=== PATIENT | male | born 1965 | race Two or more races ===

== ENCOUNTER 2022-04-28 23:21 | Inpatient (IN) | payer OTHER, MEDICAID ==
[~2022-04-28] VITALS: Ht 177.8 cm; Wt 71.9 kg
[2022-04-28 23:51] LABS: BASOPHILS % 0.2 % (0.0-2.0); HEMATOCRIT. 46.2 % (42.0-52.0); HEMOGLOBIN. 15.4 g/dL (14.0-18.0); LYMPHOCYTES % 15.3 % (20.0-50.0); MEAN CORPUSCULAR HEMOGLOBIN 29.1 pg (28.0-32.0); MEAN CORPUSCULAR VOLUME 87.1 fL (80.0-94.0); MONOCYTES % 6.2 % (2.0-8.0); NEUTROPHILS % 78.3 % (40.0-76.0); PLATELET 273 x1000/uL (130-400)
[2022-04-28 23:55] LABS: CHLORIDE 104 mEq/L (98-107)
[2022-04-29] VITALS (46 sets, daily range): BP systolic 97–149; BP diastolic 55–93
[2022-04-29] MEDS ORDERED: LABETALOL 5MG/ML SYR 20 MG/4 ML SYRINGE IV NR (01:45)
[2022-04-29] MEDS ORDERED: PHENYTOIN SODIUM 1,000 MG in SODIUM CHLORIDE 0.9% 100 ML IV ONE (02:00)
[2022-04-29] MEDS ORDERED: NICARDIPINE 100 MG in SODIUM CHLORIDE 0.9% 60 ML IV ONE (02:00)
[2022-04-29] MEDS ORDERED: MANNITOL 20% 250 ML IV ONE (02:00)
[2022-04-29] MEDS ORDERED: DEXAMETHASONE 10 MG/ML VIAL IV ONE (02:00)
[2022-04-29] MEDS ORDERED: NICARDIPINE 100 MG in SODIUM CHLORIDE 0.9% 60 ML IV NR ×4 (02:15)
[2022-04-29] MEDS ORDERED: PHENYTOIN SODIUM 1,000 MG in SODIUM CHLORIDE 0.9% 100 ML IV NR (02:15)
[2022-04-29] MEDS ORDERED: LABETALOL 5MG/ML SYR 20 MG/4 ML SYRINGE IV ONE (02:15)
[2022-04-29] MEDS ORDERED: MANNITOL 20% 250 ML IV NR (02:15)
[2022-04-29] MEDS ORDERED: LEVETIRACETAM 500MG PREMIX 100 ML IV ONE (02:15)
[2022-04-29 03:09] LABS: INR 1.1; PARTIAL THROMBOPLASTIN TIME 28.6 sec (23.4-31.0); PROTHROMBIN TIME 11.5 sec (9.6-11.0)
[2022-04-29 05:52] LABS: BASOPHILS % 0.3 % (0.0-2.0); HEMATOCRIT. 47.4 % (42.0-52.0); HEMOGLOBIN. 16.2 g/dL (14.0-18.0); LYMPHOCYTES % 10.3 % (20.0-50.0); MEAN CORPUSCULAR HEMOGLOBIN 29.8 pg (28.0-32.0); MEAN CORPUSCULAR VOLUME 87.2 fL (80.0-94.0); MEAN PLATELET VOLUME 9.1 fl (7.4-10.4); MONOCYTES % 4.8 % (2.0-8.0); NEUTROPHILS % 84.6 % (40.0-76.0); PLATELET 251 x1000/uL (130-400); RED BLOOD CELL COUNT 5.43 mill/uL (4.7-6.1); RED CELL DISTRIBUTION WIDTH 13.8 % (11.6-14.6)
[2022-04-29 06:08] LABS: CHLORIDE 105 mEq/L (98-107)
[2022-04-29] MEDS ORDERED: GENTAMICIN SULF 40MG/ML 2ML VIAL ONE (06:33)
[2022-04-29] MEDS ORDERED: THROMBIN (BOVINE) 5000 UNITS/VIAL TOP ONE (06:33)
[2022-04-29] MEDS ORDERED: LIDOCAINE HCL 2%/EPINEPHRINE 1:100,000 20 ML VIAL INFIL ONE (06:33)
[2022-04-29] MEDS ORDERED: ONDANSETRON HCL 4MG/2ML INJ ONE (07:16)
[2022-04-29] MEDS ORDERED: SUCCINYLCHOLINE CHLORIDE 200MG/10ML IV ONE (07:16)
[2022-04-29] MEDS ORDERED: ETOMIDATE 2MG/ML 10ML VIAL IV ONE (07:16)
[2022-04-29] MEDS ORDERED: DEXAMETHASONE 4MG/ML 1ML VIAL ONE (07:16)
[2022-04-29] MEDS ORDERED: ROCURONIUM BROMIDE 10MG/ML VIAL 5ML IV ONE (07:16)
[2022-04-29] MEDS ORDERED: MIDAZOLAM HCL 2 MG/2 ML VIAL ONE (07:17)
[2022-04-29] MEDS ORDERED: FENTANYL CITRATE/PF 50MCG/ML 2ML VIAL ONE (07:17)
[2022-04-29] MEDS ORDERED: LABETALOL HCL 5MG/ML VIAL 20ML IV ONE ×2 (07:34→07:49)
[2022-04-29] MEDS ORDERED: PROPOFOL 200MG/20ML VIAL IV ONE (07:40)
[2022-04-29] MEDS ORDERED: BACITRACIN 15GM TUBE TOP ONE (08:17)
[2022-04-29] MEDS ORDERED: CEFAZOLIN SODIUM 1000MG/VIAL ONE (08:20)
[2022-04-29] MEDS ORDERED: GLYCOPYRROLATE 0.2 MG/ML 2ML VIAL ONE ×2 (08:20→08:21)
[2022-04-29] MEDS ORDERED: NEOSTIGMINE METHYLSULFATE 1MG/ML 10 ML VIAL ONE (08:20)
[2022-04-29] MEDS ORDERED: NICARDIPINE 100 MG in SODIUM CHLORIDE 0.9% 60 ML IV PRN (08:45)
[2022-04-29] MEDS ORDERED: LEVETIRACETAM 500 MG in SODIUM CHLORIDE 0.9% 100 ML IV SCH (08:45)
[2022-04-29] MEDS ORDERED: NALOXONE HCL 0.4MG/ML VIAL IV PRN (09:00)
[2022-04-29] MEDS: DEXT 5%/LACTATED RINGERS 1,000 ML IV SCH (09:02)
[2022-04-29] MEDS: PANTOPRAZOLE SODIUM 40 MG/VIAL IV SCH (09:02)
[2022-04-29] MEDS: LEVETIRACETAM 500MG PREMIX 100 ML IV SCH ×2 (10:43→20:09)
[2022-04-29] MEDS: MORPHINE SULFATE 4 MG/ML CPJ (NOT FOR IM USE) IV PRN ×3 (11:46→22:58)
[2022-04-29] MEDS ORDERED: NEOMY SULF/BACITRAC ZN/POLY OINT 28GM TOP PRN (12:00)
[2022-04-29] MEDS: CEFAZOLIN 1000MG PREMIX 50 ML IV SCH ×2 (13:18→22:51)
[2022-04-29] MEDS ORDERED: CEFAZOLIN SODIUM 1000MG/VIAL IV SCH (14:00)
[2022-04-30] VITALS (68 sets, daily range): BP systolic 74–150; BP diastolic 47–96
[2022-04-30] MEDS: MORPHINE SULFATE 4 MG/ML CPJ (NOT FOR IM USE) IV PRN ×7 (01:49→20:43)
[2022-04-30] MEDS: DEXT 5%/LACTATED RINGERS 1,000 ML IV SCH ×2 (01:49→19:24)
[2022-04-30] MEDS: CEFAZOLIN 1000MG PREMIX 50 ML IV SCH ×2 (05:11→13:09)
[2022-04-30 06:09] LABS: BASOPHILS % 0.1 % (0.0-2.0); HEMATOCRIT. 43.2 % (42.0-52.0); LYMPHOCYTES % 8.5 % (20.0-50.0); MEAN CORPUSCULAR HEMOGLOBIN 28.9 pg (28.0-32.0); MEAN CORPUSCULAR VOLUME 89.2 fL (80.0-94.0); MEAN PLATELET VOLUME 8.7 fl (7.4-10.4); MONOCYTES % 8.9 % (2.0-8.0); NEUTROPHILS % 82.5 % (40.0-76.0); PLATELET 271 x1000/uL (130-400); RED BLOOD CELL COUNT 4.84 mill/uL (4.7-6.1); RED CELL DISTRIBUTION WIDTH 14.1 % (11.6-14.6)
[2022-04-30 07:00] LABS: CHLORIDE 110 mEq/L (98-107)
[2022-04-30] MEDS: LEVETIRACETAM 500MG PREMIX 100 ML IV SCH ×2 (08:30→20:41)
[2022-04-30] MEDS: HYDROCODONE/ACETAMINOPHEN 5/325MG TABLET PO PRN ×3 (08:30→23:11)
[2022-04-30] MEDS: PANTOPRAZOLE SODIUM 40 MG/VIAL IV SCH (08:30)
[2022-04-30] MEDS ORDERED: HYDRALAZINE 20MG/ML VIAL IV PRN (14:45)
[2022-04-30] MEDS: AMLODIPINE 5MG TABLET PO SCH (20:41)
[2022-04-30] MEDS: LOSARTAN POTASSIUM 50 MG TABLET PO SCH (20:41)
[2022-05-01] VITALS (55 sets, daily range): BP systolic 95–161; BP diastolic 48–99
[2022-05-01] MEDS: HYDROCODONE/ACETAMINOPHEN 5/325MG TABLET PO PRN ×5 (04:49→22:58)
[2022-05-01 05:58] LABS: BASOPHILS % 0.3 % (0.0-2.0); HEMATOCRIT. 42.5 % (42.0-52.0); LYMPHOCYTES % 24.9 % (20.0-50.0); MEAN CORPUSCULAR HEMOGLOBIN 29.1 pg (28.0-32.0); MEAN CORPUSCULAR VOLUME 88.3 fL (80.0-94.0); MEAN PLATELET VOLUME 8.6 fl (7.4-10.4); MONOCYTES % 10.9 % (2.0-8.0); NEUTROPHILS % 63.9 % (40.0-76.0); PLATELET 249 x1000/uL (130-400); RED BLOOD CELL COUNT 4.82 mill/uL (4.7-6.1); RED CELL DISTRIBUTION WIDTH 13.9 % (11.6-14.6)
[2022-05-01] MEDS: MORPHINE SULFATE 4 MG/ML CPJ (NOT FOR IM USE) IV PRN ×5 (06:11→21:15)
[2022-05-01 06:13] LABS: CHLORIDE 110 mEq/L (98-107)
[2022-05-01] MEDS: AMLODIPINE 5MG TABLET PO SCH ×2 (08:32→20:35)
[2022-05-01] MEDS: PANTOPRAZOLE SODIUM 40 MG/VIAL IV SCH (08:32)
[2022-05-01] MEDS: LEVETIRACETAM 500MG PREMIX 100 ML IV SCH ×2 (08:32→20:36)
[2022-05-01] MEDS: LOSARTAN POTASSIUM 50 MG TABLET PO SCH ×2 (08:32→20:39)
[2022-05-01] MEDS: DEXT 5%/LACTATED RINGERS 1,000 ML IV SCH (12:18)
[2022-05-02] VITALS (36 sets, daily range): BP systolic 42–147; BP diastolic 24–99
[2022-05-02] MEDS: HYDROCODONE/ACETAMINOPHEN 5/325MG TABLET PO PRN ×3 (03:09→17:58)
[2022-05-02] MEDS: MORPHINE SULFATE 4 MG/ML CPJ (NOT FOR IM USE) IV PRN ×4 (05:00→16:26)
[2022-05-02] MEDS: LOSARTAN POTASSIUM 50 MG TABLET PO SCH ×2 (08:00→20:14)
[2022-05-02] MEDS: LEVETIRACETAM 500MG PREMIX 100 ML IV SCH (08:01)
[2022-05-02] MEDS: AMLODIPINE 5MG TABLET PO SCH ×2 (08:01→20:14)
[2022-05-02] MEDS: PANTOPRAZOLE SODIUM 40 MG/VIAL IV SCH (08:01)
[2022-05-02] MEDS: LIDOCAINE 5% PATCH TOP SCH (10:27)
[2022-05-02] MEDS: PANTOPRAZOLE 40MG DR TABLET PO SCH (20:13)
[2022-05-02] MEDS: LEVETIRACETAM 500MG TABLET PO SCH (20:14)
[2022-05-02] MEDS: ACETAMINOPHEN 325MG TABLET PO PRN (20:14)
[2022-05-03] VITALS (32 sets, daily range): BP systolic 94–135; BP diastolic 53–100
[2022-05-03] MEDS: MORPHINE SULFATE 4 MG/ML CPJ (NOT FOR IM USE) IV PRN ×3 (01:25→08:00)
[2022-05-03] MEDS: HYDROCODONE/ACETAMINOPHEN 5/325MG TABLET PO PRN ×3 (05:19→17:34)
[2022-05-03] MEDS: PANTOPRAZOLE 40MG DR TABLET PO SCH ×2 (05:53→20:14)
[2022-05-03] MEDS: AMLODIPINE 5MG TABLET PO SCH ×2 (08:17→20:14)
[2022-05-03] MEDS: LEVETIRACETAM 500MG TABLET PO SCH ×2 (08:17→20:14)
[2022-05-03] MEDS: LOSARTAN POTASSIUM 50 MG TABLET PO SCH ×2 (08:17→20:14)
[2022-05-03] MEDS: LIDOCAINE 5% PATCH TOP SCH (08:18)
[2022-05-03] MEDS: ACETAMINOPHEN 325MG TABLET PO PRN (20:14)
[2022-05-03] MEDS: ZOLPIDEM TARTRATE 5MG TABLET PO PRN (21:36)
[2022-05-04] VITALS: BP 117/69
[2022-05-04] MEDS: HYDROCODONE/ACETAMINOPHEN 5/325MG TABLET PO PRN ×4 (03:32→20:04)
[2022-05-04 04:00] VITALS: BP 122/85
[2022-05-04] MEDS: PANTOPRAZOLE 40MG DR TABLET PO SCH ×2 (06:21→20:04)
[2022-05-04] MEDS: ACETAMINOPHEN 325MG TABLET PO PRN (06:24)
[2022-05-04 08:00] VITALS: BP 114/74
[2022-05-04] MEDS: LOSARTAN POTASSIUM 50 MG TABLET PO SCH ×2 (08:47→20:03)
[2022-05-04] MEDS: LEVETIRACETAM 500MG TABLET PO SCH (08:47)
[2022-05-04] MEDS: AMLODIPINE 5MG TABLET PO SCH ×2 (08:48→20:03)
[2022-05-04] MEDS: LIDOCAINE 5% PATCH TOP SCH (08:49)
[2022-05-04 12:00] VITALS: BP 114/71
[2022-05-04] MEDS ORDERED: IPRATROPIUM/ALBUTEROL 0.5-3(2.5)MG/3ML NEB HHN PRN (15:45)
[2022-05-04 16:00] VITALS: BP 114/68
[2022-05-04 20:00] VITALS: BP 126/83
[2022-05-05] VITALS: BP 125/79
[2022-05-05] MEDS: ZOLPIDEM TARTRATE 5MG TABLET PO PRN (00:15)
[2022-05-05] MEDS: HYDROCODONE/ACETAMINOPHEN 5/325MG TABLET PO PRN ×2 (00:15→04:52)
[2022-05-05 04:00] VITALS: BP 103/67
[2022-05-05] MEDS: PANTOPRAZOLE 40MG DR TABLET PO SCH (06:21)
[2022-05-05 08:00] VITALS: BP 126/74
[2022-05-05 12:00] VITALS: BP 123/77
[2022-05-05] MEDS ORDERED: FOLIC ACID 1MG TABLET PO SCH (12:30)
[2022-05-05] MEDS ORDERED: THIAMINE HCL 100MG TABLET PO SCH (12:30)
[2022-05-05] MEDS ORDERED: NALOXONE HCL 0.4MG/ML VIAL IV PRN (13:45)
[2022-05-05] MEDS ORDERED: HYDROCODONE/ACETAMINOPHEN 5/325MG TABLET PO PRN (13:45)
[2022-05-05 16:00] VITALS: BP 119/86
[2022-05-05 18:26] VITALS: BP 123/77
[2022-05-06] MEDS ORDERED: FAMOTIDINE 20MG TABLET PO SCH (09:00)
== END 2022-05-05 19:43 | disposition home health service (06) | DRG 25 ==
LOC: ER 23:36 → MICUSO 04-29 02:10 → ENRESERV 04-29 02:42 → MICUSO 04-29 03:30 → 6EST 05-03 18:00
PROVIDERS: ADMIT Internal Medicine; ATTEND Internal Medicine
PROC: 4A103BD Monitoring of Intracranial Pressure, Percutaneous Approach (ICD-10-PCS; principal; 2022-04-29)
PROC: 00C40ZZ Extirpation of Matter from Intracranial Subdural Space, Open Approach (ICD-10-PCS; 2022-04-29)
PROC: 00H032Z Insertion of Monitoring Device into Brain, Percutaneous Approach (ICD-10-PCS; 2022-04-29)
PROC: 00U207Z Supplement Dura Mater with Autologous Tissue Substitute, Open Approach (ICD-10-PCS; 2022-04-29)
DX: I62.01 Nontraumatic acute subdural hemorrhage (principal); G93.41 Metabolic encephalopathy; I62.03 Nontraumatic chronic subdural hemorrhage; I10 Essential (primary) hypertension; Z20.822 Contact with and (suspected) exposure to COVID-19; M25.512 Pain in left shoulder; H53.2 Diplopia; D72.829 Elevated white blood cell count, unspecified; R53.81 Other malaise; G89.29 Other chronic pain; F17.200 Nicotine dependence, unspecified, uncomplicated; Z82.49 Family history of ischemic heart disease and other diseases of the circulatory system; Z87.11 Personal history of peptic ulcer disease
CPT/HCPCS: 36415; 71045; 73030; 80048; 80053; 83605; 84484; 85025; 86850; 86900; 87426; 92523; 93005; 97116; 97162; 97166; 99291; A4565; C1713; C1758; C9113; J0330; J0690; J1100; J1165; J1580; J1953; J2250; J2270; J2405; J2704; J2710; J3010; J3490; J7050; J7120; J7121

== ENCOUNTER 2023-11-20 09:33 | Inpatient (IN) | payer MEDICAID, OTHER ==
[~2023-11-20] VITALS: Ht 167.6 cm; Wt 69.2 kg
[2023-11-20] VITALS (26 sets, daily range): BP systolic 99–137; BP diastolic 14–97; PULSE 69–85; RESP 22–31; TEMP 96.1–98.8
[2023-11-20] MEDS: PIPERACILLIN/TAZO 3.375G/50ML 50 ML IV ONE (09:45)
[2023-11-20] MEDS: VANCOMYCIN 1G PREMIX 200 ML IV ONE (09:45)
[2023-11-20 10:03] LABS: BG CARBOXYHEMOGLOBIN 0.3 % (0.5-1.5); BG DEOXYHEMOGLOBIN 6.4 % (0.0-5.0); BG HCO3 ACT 3.7 mmol/L (22.0-26.0); BG METHEMOGLOBIN 0.1 % (0.0-1.5); BG OXYGEN SATURATION 93.6 % (92.0-98.5); BG OXYHEMOGLOBIN 93.2 % (94.0-97.0); BG PCO2 12.5 mmHg (35.0-45.0); BG PH 7.089 (7.350-7.450); BG PO2 89.7 mmHg (75.0-100.0); BG SAMPLE SITE RIGHT BRACHIAL; BG TOTAL HEMOGLOBIN 11.9 g/dL (12.0-18.0); BG VENT MODE NASAL CANNULA
[2023-11-20 10:07] LABS: HEMATOCRIT. 39.3 % (42.0-52.0); HEMOGLOBIN. 11.6 g/dL (14.0-18.0); MEAN CORPUSCULAR HEMOGLOBIN 34.8 pg (28.0-32.0); MEAN CORPUSCULAR HGB CONC 29.5 g/dL (31.0-37.0); MEAN CORPUSCULAR VOLUME 117.9 fL (80.0-94.0); MEAN PLATELET VOLUME 8.2 fl (7.4-10.4); PLATELET 110 x1000/uL (130-400); RED BLOOD CELL COUNT 3.33 mill/uL (4.7-6.1); RED CELL DISTRIBUTION WIDTH 19.4 % (11.6-14.6); WHITE BLOOD COUNT 13.8 x1000/uL (4.5-11.0)
[2023-11-20 10:12] LABS: DIFFERENTIAL COMMENT 1
[2023-11-20] MEDS: SODIUM CHLORIDE 0.9% 1,000 ML IV ONE ×2 (10:17→11:17)
[2023-11-20 10:22] LABS: ALANINE AMINOTRANSFERASE 132 IU/L (10-49); ALBUMIN 3.1 g/dL (3.2-4.8); ASPARTATE AMINOTRANSFERASE 837 IU/L (<34); CALCIUM 8.2 mg/dL (8.7-10.4); CHLORIDE 103 mEq/L (98-107); CREATININE 2.9 mg/dL (0.6-1.3); GLUCOSE 72 mg/dL (70-105); POTASSIUM 4.5 mEq/L (3.5-5.1); PROTEIN TOTAL 6.4 g/dL (6.0-8.3); SODIUM 147 mEq/L (136-145); UREA NITROGEN BLOOD 17 mg/dL (9-23)
[2023-11-20 10:25] LABS: AMMONIA 319 uMol/L (<32)
[2023-11-20 10:26] LABS: INR 1.3
[2023-11-20 10:27] LABS: TROPONIN I HIGH SENSITIVITY 1459 ng/L (3.0-53)
[2023-11-20 10:29] LABS: CARBON DIOXIDE < 10 mEq/L (21-32)
[2023-11-20 10:44] LABS: ANISOCYTOSIS 1+; LACTIC ACID 26.3 mmol/L (0.4-2.0); NUCLEATED RED BLOOD CELLS 1 /100 WBC; PLATELET ESTIMATE SLIGHTLY DECREASED; TOXIC VACUOLATION 2+
[2023-11-20] MEDS: LACTULOSE 20G/30ML UDC PO ONE (10:45)
[2023-11-20] MEDS: SODIUM CHLORIDE 0.9% 1000ML BAG (SEPSIS BOLUS) IV ONE (11:00)
[2023-11-20] MEDS: SODIUM BICARBONATE 8.4% 1 MEQ/ML 50ML SYR IV ONE (11:22)
[2023-11-20] MEDS: SODIUM BICARBONATE 8.4% 1 MEQ/ML 50ML SYR IV NR (11:41)
[2023-11-20] MEDS: NOREPINEPHRINE 8MG/250ML PMX 250 ML IV PRN ×2 (11:44→21:56)
[2023-11-20] MEDS ORDERED: NOREPINEPHRINE 8MG/250ML PMX 250 ML IV ONE (11:45)
[2023-11-20 11:47] LABS: CREATINE KINASE 1168 IU/L (46-171)
[2023-11-20] MEDS: SODIUM BICARBONATE 150 MEQ in DEXTROSE 5% WATER 850 ML IV SCH (11:53)
[2023-11-20] MEDS: FENTANYL CITRATE/PF 50MCG/ML 2ML VIAL IV ONE (12:30)
[2023-11-20] MEDS: MIDAZOLAM HCL 100 MG in DEXT 5% WATER 80 ML IV ONE (12:30)
[2023-11-20] MEDS ORDERED: DIPHENHYDRAMINE 50MG/ML VIAL IV PRN (12:45)
[2023-11-20] MEDS: FENTANYL 2500MCG/250ML PMX 250 ML IV ONE (12:45)
[2023-11-20] MEDS ORDERED: IPRATROPIUM/ALBUTEROL 0.5-3(2.5)MG/3ML NEB HHN PRN (12:45)
[2023-11-20] MEDS: ETOMIDATE 2MG/ML 10ML VIAL IV ONE (12:57)
[2023-11-20] MEDS: SUCCINYLCHOLINE CHLORIDE 200MG/10ML IV ONE (12:57)
[2023-11-20 13:32] LABS: BG BASE EXCESS -18.9 mmol/L (-2.0-2.0); BG CARBOXYHEMOGLOBIN 0.3 % (0.5-1.5); BG DEOXYHEMOGLOBIN 5.3 % (0.0-5.0); BG HCO3 ACT 9.6 mmol/L (22.0-26.0); BG METHEMOGLOBIN 0.1 % (0.0-1.5); BG OXYGEN SATURATION 94.7 % (92.0-98.5); BG OXYHEMOGLOBIN 94.3 % (94.0-97.0); BG PCO2 31.4 mmHg (35.0-45.0); BG PH 7.101 (7.350-7.450); BG PO2 97.2 mmHg (75.0-100.0); BG SAMPLE SITE RIGHT BRACHIAL; BG TOTAL HEMOGLOBIN 12.5 g/dL (12.0-18.0); BG VENT MODE VENT - AC
[2023-11-20] MEDS ORDERED: DOXYCYCLINE 100MG/100ML 100 ML IV SCH (15:00)
[2023-11-20] MEDS ORDERED: AZITHROMYCIN 500MG/250ML 250 ML IV SCH (15:00)
[2023-11-20] MEDS ORDERED: PHENYLEPHRINE 50MG/250ML PMX 250 ML IV PRN (16:00)
[2023-11-20] MEDS ORDERED: VASOPRESSIN 20 UNIT in SODIUM CHLORIDE 0.9% 99 ML IV PRN (16:00)
[2023-11-20] MEDS ORDERED: ALBUMIN HUMAN 12.5GM/50ML (25%) IV NR (16:00)
[2023-11-20] MEDS ORDERED: SODIUM BICARBONATE 8.4% 1 MEQ/ML 50ML SYR IV NR (16:00)
[2023-11-20] MEDS ORDERED: PANTOPRAZOLE SODIUM 40 MG/VIAL IV SCH (16:00)
[2023-11-20 16:26] LABS: HEMATOCRIT 36.1 % (42.0-52.0); HEMOGLOBIN 10.7 g/dL (14.0-18.0)
[2023-11-20] MEDS: PHENYLEPHRINE 50MG/250ML PMX 250 ML IV PRN (16:39)
[2023-11-20] MEDS: VASOPRESSIN 20 UNIT in SODIUM CHLORIDE 0.9% 99 ML IV PRN (16:48)
[2023-11-20 16:55] LABS: IRON 117 ug/dL (65-175); TOTAL IRON BINDING CAPACITY 120 ug/dl (250-425)
[2023-11-20] MEDS ORDERED: OCTREOTIDE 1,000 MCG in SODIUM CHLORIDE 0.9% 98 ML IV ONE (17:00)
[2023-11-20] MEDS: OCTREOTIDE 1,000 MCG in SODIUM CHLORIDE 0.9% 98 ML IV ONE (17:05)
[2023-11-20 17:21] LABS: HEPATITIS A AB IGM NEGATIVE (Negative); HEPATITIS B CORE AB IGM NEGATIVE (Negative); HEPATITIS B SURFACE ANTIGEN NEGATIVE (Negative); HEPATITIS C AB NON REACTIVE (Neg) (Negative)
[2023-11-20 17:29] LABS: FERRITIN 6754 ng/mL (22-322); FOLIC ACID (FOLATE) SERUM > 20.00 ng/mL (>5.38); VITAMIN B12 SERUM 815 pg/mL (211-911)
[2023-11-20] MEDS ORDERED: CEFTRIAXONE 1GM/50ML 50 ML IV SCH (18:00)
[2023-11-20] MEDS: FENTANYL 2500MCG/250ML PMX 250 ML IV PRN (18:52)
[2023-11-20] MEDS: MIDAZOLAM 100MG/100ML PREMIX IV PRN (18:55)
[2023-11-20] MEDS: IPRATROPIUM/ALBUTEROL 0.5-3(2.5)MG/3ML NEB HHN SCH (20:42)
[2023-11-20] MEDS: LACTULOSE ENEMA 1,000ML BOTTLE PR SCH (21:00)
[2023-11-20] MEDS: PANTOPRAZOLE SODIUM 40 MG/VIAL IV SCH (21:42)
[2023-11-20] MEDS: METHYLPREDNISOLONE SOD SUCC 40MG/ML (ACT-O-VIAL) IV SCH (21:42)
[2023-11-20] MEDS ORDERED: LACTULOSE 20G/30ML UDC PO SCH (22:00)
[2023-11-20 22:39] LABS: HEMATOCRIT 38.2 % (42.0-52.0)
[2023-11-21] VITALS (105 sets, daily range): BP systolic 68–227; BP diastolic 46–131; PULSE 76–120; RESP 19–30; TEMP 95.2–98.6
[2023-11-21 00:23] LABS: CLARITY URINE CLOUDY (CLEAR); COLOR URINE YELLOW (YELLOW); GLUCOSE URINE NEGATIVE (NEGATIVE); KETONES URINE TRACE (NEGATIVE); LEUKOCYTE ESTERASE URINE NEGATIVE (NEGATIVE); NITRITE URINE NEGATIVE (NEGATIVE); OCCULT BLOOD URINE 3+ (NEGATIVE); PROTEIN URINE 1+ (NEGATIVE); SPECIFIC GRAVITY URINE 1.013 (1.005-1.030); UROBILINOGEN URINE 0.2 E.U./dL (0.2-1.0)
[2023-11-21 00:59] LABS: HEMATOCRIT 37.1 % (42.0-52.0); HEMOGLOBIN 11.9 g/dL (14.0-18.0)
[2023-11-21 01:31] LABS: RBC URINE 0-2 /hpf (0-2); SQUAMOUS EPITHELIAL CELL URINE NONE SEEN /lpf (RARE/1+); WBC URINE 0-2 /hpf (0-2)
[2023-11-21 01:32] LABS: AMORPHOUS SEDIMENT URINE 1+ /lpf; BACTERIA URINE NONE SEEN; FINE GRANULAR CASTS URINE 0-5 /lpf
[2023-11-21] MEDS: PIPERACILLIN/TAZO 3.375G/50ML 50 ML IV SCH (01:37)
[2023-11-21] MEDS: ONDANSETRON HCL 4MG/2ML INJ IV PRN (04:05)
[2023-11-21] MEDS: NOREPINEPHRINE 32 MG in DEXT 5% WATER 218 ML IV PRN (04:05)
[2023-11-21] MEDS: MIDAZOLAM 100MG/100ML PMX 100 ML IV PRN (05:05)
[2023-11-21] MEDS: DOXYCYCLINE 100MG/100ML 100 ML IV SCH (05:06)
[2023-11-21 06:11] LABS: HEMATOCRIT. 37.9 % (42.0-52.0); HEMOGLOBIN. 12.2 g/dL (14.0-18.0); MEAN CORPUSCULAR HGB CONC 32.1 g/dL (31.0-37.0); MEAN CORPUSCULAR VOLUME 108.9 fL (80.0-94.0); RED BLOOD CELL COUNT 3.48 mill/uL (4.7-6.1); RED CELL DISTRIBUTION WIDTH 18.8 % (11.6-14.6)
[2023-11-21 06:30] LABS: AMMONIA 109 uMol/L (<32)
[2023-11-21 06:39] LABS: ALANINE AMINOTRANSFERASE 834 IU/L (10-49); ALBUMIN 2.6 g/dL (3.2-4.8); BILIRUBIN TOTAL 2.6 mg/dL (0.1-1.0); CALCIUM 6.1 mg/dL (8.7-10.4); CARBON DIOXIDE 21 mEq/L (21-32); CHLORIDE 105 mEq/L (98-107); CREATININE 2.3 mg/dL (0.6-1.3); PROTEIN TOTAL 5.4 g/dL (6.0-8.3); SODIUM 150 mEq/L (136-145); UREA NITROGEN BLOOD 23 mg/dL (9-23)
[2023-11-21 06:42] LABS: ASPARTATE AMINOTRANSFERASE > 6000 IU/L (<34); GLUCOSE 317 mg/dL (70-105)
[2023-11-21 07:28] LABS: DIFFERENTIAL COMMENT 1
[2023-11-21] MEDS: DEXT 5%/0.45% NACL 1000ML 1,000 ML IV SCH (08:54)
[2023-11-21] MEDS: KCL 20MEQ/100ML PREMIX 100 ML IV SCH (08:54)
[2023-11-21 09:06] LABS: BG BASE EXCESS 0.2 mmol/L (-2.0-2.0); BG CARBOXYHEMOGLOBIN 0.4 % (0.5-1.5); BG FRACTION INSPIRED OXYGEN 100; BG HCO3 ACT 26.2 mmol/L (22.0-26.0); BG METHEMOGLOBIN 0.3 % (0.0-1.5); BG OXYGEN SATURATION 86.9 % (92.0-98.5); BG OXYHEMOGLOBIN 86.3 % (94.0-97.0); BG PCO2 47.9 mmHg (35.0-45.0); BG PH 7.356 (7.350-7.450); BG PO2 59.7 mmHg (75.0-100.0); BG SAMPLE SITE RIGHT RADIAL; BG TOTAL HEMOGLOBIN 12.5 g/dL (12.0-18.0); BG TOTAL RESPIRATORY RATE 33 b/min; BG VENT MODE VENT - AC
[2023-11-21 09:35] LABS: PLATELET 73 x1000/uL (130-400)
[2023-11-21 09:48] LABS: CREATINE KINASE 2112 IU/L (46-171)
[2023-11-21] MEDS: FENTANYL 2500MCG/250ML PMX 250 ML IV PRN (11:06)
[2023-11-21 13:15] LABS: NUCLEATED RED BLOOD CELLS 7 /100 WBC; PLATELET ESTIMATE SLIGHTLY DECREASED
[2023-11-21 17:20] LABS: HEMATOCRIT 39.5 % (42.0-52.0); HEMOGLOBIN 12.9 g/dL (14.0-18.0)
[2023-11-21 21:06] LABS: HEMATOCRIT 38.4 % (42.0-52.0); HEMOGLOBIN 12.2 g/dL (14.0-18.0)
[2023-11-22] VITALS (108 sets, daily range): BP systolic 67–121; BP diastolic 48–82; PULSE 99–130; RESP 11–30; TEMP 97.7–98.4
[2023-11-22 05:29] LABS: HEMATOCRIT. 35.2 % (42.0-52.0); HEMOGLOBIN. 11.5 g/dL (14.0-18.0); MEAN CORPUSCULAR HEMOGLOBIN 35.4 pg (28.0-32.0); MEAN CORPUSCULAR HGB CONC 32.7 g/dL (31.0-37.0); MEAN CORPUSCULAR VOLUME 108.1 fL (80.0-94.0); RED BLOOD CELL COUNT 3.26 mill/uL (4.7-6.1); RED CELL DISTRIBUTION WIDTH 18.1 % (11.6-14.6)
[2023-11-22 05:41] LABS: CARBON DIOXIDE 28 mEq/L (21-32); CHLORIDE 107 mEq/L (98-107); CREATININE 2.7 mg/dL (0.6-1.3); PHOSPHORUS 1.5 mg/dL (2.5-4.9); SODIUM 149 mEq/L (136-145); UREA NITROGEN BLOOD 34 mg/dL (9-23)
[2023-11-22 06:46] LABS: DIFFERENTIAL COMMENT 1
[2023-11-22 06:59] LABS: GLUCOSE 444 mg/dL (70-105)
[2023-11-22] MEDS ORDERED: CALCIUM GLUCONATE 1,000 MG in DEXT 5% WATER 90 ML IV ONE (07:30)
[2023-11-22 07:36] LABS: MEAN PLATELET VOLUME 8.6 fl (7.4-10.4); PLATELET 43 x1000/uL (130-400)
[2023-11-22] MEDS: BLOOD SUGAR DIAGNOSTIC STRIP TEST SCH (08:17)
[2023-11-22] MEDS: MAGNESIUM 2 G PREMIX 50 ML IV ONE (08:24)
[2023-11-22] MEDS: KCL 20MEQ/100ML PREMIX 100 ML IV SCH (08:25)
[2023-11-22] MEDS: INSULIN LISPRO 100 UNITS/ML SUBCUT SCH (08:25)
[2023-11-22 09:01] LABS: BG BASE EXCESS 4.8 mmol/L (-2.0-2.0); BG CARBOXYHEMOGLOBIN 0.1 % (0.5-1.5); BG DEOXYHEMOGLOBIN 8.1 % (0.0-5.0); BG FRACTION INSPIRED OXYGEN 100; BG HCO3 ACT 29.1 mmol/L (22.0-26.0); BG METHEMOGLOBIN 0.3 % (0.0-1.5); BG OXYGEN SATURATION 91.9 % (92.0-98.5); BG OXYHEMOGLOBIN 91.5 % (94.0-97.0); BG PCO2 41.7 mmHg (35.0-45.0); BG PH 7.461 (7.350-7.450); BG PO2 64.7 mmHg (75.0-100.0); BG SAMPLE SITE RIGHT RADIAL; BG TOTAL HEMOGLOBIN 12.4 g/dL (12.0-18.0); BG VENT MODE VENT - AC
[2023-11-22] MEDS: CALCIUM GLUCONATE 1GM PREMIX 50ML IV SCH (09:23)
[2023-11-22] MEDS: INSULIN GLARGINE 100 UNITS/ML SUBCUT SCH (09:24)
[2023-11-22 10:01] LABS: ANISOCYTOSIS 2+; NUCLEATED RED BLOOD CELLS 4 /100 WBC; PLATELET ESTIMATE MARKEDLY DECREASED
[2023-11-22] MEDS: POTASSIUM PHOSPHATE 20 MMOL in DEXT 5% WATER 243.3333 ML IV SCH (10:31)
[2023-11-22] MEDS: LACTULOSE 20G/30ML UDC PO SCH (21:21)
[2023-11-23] VITALS (97 sets, daily range): BP systolic 78–133; BP diastolic 59–95; PULSE 91–147; RESP 15–32; TEMP 97.7–98
[2023-11-23 05:38] LABS: AMMONIA 30 uMol/L (<32)
[2023-11-23 06:03] LABS: HEMATOCRIT. 35.5 % (42.0-52.0); HEMOGLOBIN. 11.7 g/dL (14.0-18.0); MEAN CORPUSCULAR HEMOGLOBIN 35.1 pg (28.0-32.0); MEAN CORPUSCULAR HGB CONC 32.9 g/dL (31.0-37.0); MEAN CORPUSCULAR VOLUME 106.7 fL (80.0-94.0); MEAN PLATELET VOLUME 9.4 fl (7.4-10.4); RED BLOOD CELL COUNT 3.32 mill/uL (4.7-6.1); RED CELL DISTRIBUTION WIDTH 18.5 % (11.6-14.6)
[2023-11-23 06:16] LABS: CALCIUM 6.9 mg/dL (8.7-10.4); CARBON DIOXIDE 28 mEq/L (21-32); CHLORIDE 109 mEq/L (98-107); CREATININE 2.8 mg/dL (0.6-1.3); PHOSPHORUS 3.3 mg/dL (2.5-4.9); POTASSIUM 3.4 mEq/L (3.5-5.1); SODIUM 149 mEq/L (136-145); UREA NITROGEN BLOOD 38 mg/dL (9-23)
[2023-11-23 06:21] LABS: GLUCOSE 148 mg/dL (70-105)
[2023-11-23 07:47] LABS: DIFFERENTIAL COMMENT 1; PLATELET 33 x1000/uL (130-400)
[2023-11-23 08:57] LABS: BG BASE EXCESS 2.3 mmol/L (-2.0-2.0); BG CARBOXYHEMOGLOBIN 0.2 % (0.5-1.5); BG DEOXYHEMOGLOBIN 7.2 % (0.0-5.0); BG FRACTION INSPIRED OXYGEN 70; BG HCO3 ACT 25.9 mmol/L (22.0-26.0); BG METHEMOGLOBIN 0.2 % (0.0-1.5); BG OXYGEN SATURATION 92.8 % (92.0-98.5); BG OXYHEMOGLOBIN 92.4 % (94.0-97.0); BG PCO2 36.8 mmHg (35.0-45.0); BG PH 7.466 (7.350-7.450); BG PO2 66.7 mmHg (75.0-100.0); BG SAMPLE SITE RIGHT RADIAL; BG VENT MODE VENT - AC
[2023-11-23] MEDS: KCL 20MEQ/100ML PREMIX 100 ML IV SCH (09:33)
[2023-11-23] MEDS: DEXTROSE 5% WATER 1,000 ML IV SCH (09:35)
[2023-11-23 11:54] LABS: ANISOCYTOSIS 1+; NUCLEATED RED BLOOD CELLS 8 /100 WBC; PLATELET ESTIMATE MARKEDLY DECREASED
[2023-11-23] MEDS ORDERED: PROPOFOL 10MG/ML 100ML 100 ML IV PRN (14:00)
[2023-11-23] MEDS: CEFEPIME 1GM/50ML 50 ML IV SCH (16:20)
[2023-11-24] VITALS (106 sets, daily range): BP systolic 82–143; BP diastolic 52–85; PULSE 84–114; RESP 16–33; TEMP 97.8–98
[2023-11-24 05:43] LABS: HEMATOCRIT. 35.5 % (42.0-52.0); HEMOGLOBIN. 11.8 g/dL (14.0-18.0); MEAN CORPUSCULAR HEMOGLOBIN 35.3 pg (28.0-32.0); MEAN CORPUSCULAR HGB CONC 33.3 g/dL (31.0-37.0); MEAN PLATELET VOLUME 10.1 fl (7.4-10.4); RED BLOOD CELL COUNT 3.35 mill/uL (4.7-6.1); RED CELL DISTRIBUTION WIDTH 18.3 % (11.6-14.6)
[2023-11-24 05:51] LABS: CALCIUM 6.9 mg/dL (8.7-10.4); CARBON DIOXIDE 29 mEq/L (21-32); CHLORIDE 109 mEq/L (98-107); CREATININE 2.3 mg/dL (0.6-1.3); GLUCOSE 173 mg/dL (70-105); PHOSPHORUS 3.2 mg/dL (2.5-4.9); POTASSIUM 3.2 mEq/L (3.5-5.1); SODIUM 148 mEq/L (136-145); TRIGLYCERIDE 55 mg/dL (0-150); UREA NITROGEN BLOOD 40 mg/dL (9-23)
[2023-11-24 06:24] LABS: DIFFERENTIAL COMMENT 1
[2023-11-24 06:26] LABS: PLATELET 28 x1000/uL (130-400)
[2023-11-24 09:06] LABS: BG BASE EXCESS 3.6 mmol/L (-2.0-2.0); BG CARBOXYHEMOGLOBIN 0.3 % (0.5-1.5); BG DEOXYHEMOGLOBIN 6.1 % (0.0-5.0); BG FRACTION INSPIRED OXYGEN 100; BG HCO3 ACT 28.5 mmol/L (22.0-26.0); BG OXYGEN SATURATION 93.9 % (92.0-98.5); BG OXYHEMOGLOBIN 93.6 % (94.0-97.0); BG PCO2 44.1 mmHg (35.0-45.0); BG PH 7.428 (7.350-7.450); BG PO2 76.2 mmHg (75.0-100.0); BG SAMPLE SITE RIGHT BRACHIAL; BG TOTAL HEMOGLOBIN 13.3 g/dL (12.0-18.0); BG VENT MODE VENT - AC
[2023-11-24 11:43] LABS: NUCLEATED RED BLOOD CELLS 13 /100 WBC; PLATELET ESTIMATE MARKEDLY DECREASED
[2023-11-24 11:44] LABS: ANISOCYTOSIS 1+
[2023-11-24] MEDS ORDERED: KCL 20MEQ/100ML PREMIX 100 ML IV ONE (21:00)
[2023-11-24] MEDS: POTASSIUM CHLORIDE 20MEQ in DEXT 5% WATER 100ML IV NR (21:52)
[2023-11-25] VITALS (90 sets, daily range): BP systolic 78–130; BP diastolic 49–93; PULSE 67–107; RESP 20–37; TEMP 97.3–99.6
[2023-11-25 09:06] LABS: BG BASE EXCESS 1.1 mmol/L (-2.0-2.0); BG CARBOXYHEMOGLOBIN 0.3 % (0.5-1.5); BG DEOXYHEMOGLOBIN 10.2 % (0.0-5.0); BG FRACTION INSPIRED OXYGEN 100; BG HCO3 ACT 25.2 mmol/L (22.0-26.0); BG METHEMOGLOBIN 0.3 % (0.0-1.5); BG OXYGEN SATURATION 89.7 % (92.0-98.5); BG OXYHEMOGLOBIN 89.2 % (94.0-97.0); BG PCO2 38.2 mmHg (35.0-45.0); BG PH 7.437 (7.350-7.450); BG PO2 60.3 mmHg (75.0-100.0); BG SAMPLE SITE RIGHT BRACHIAL; BG VENT MODE VENT - AC
[2023-11-25 09:10] LABS: AMPHETAMINE SCREEN Negative ng/mL (Cutoff:50); BARBITURATE SCREEN Negative ug/mL (Cutoff:0.1); CANNABINOID SCREEN Negative ng/mL (Cutoff:5); OPIATES SCREEN Negative ng/mL (Cutoff:5); PHENCYCLIDINE SCREEN Negative ng/mL (Cutoff:8)
[2023-11-25 09:40] LABS: CALCIUM 7.6 mg/dL (8.7-10.4); CREATININE 2.3 mg/dL (0.6-1.3); POTASSIUM 3.1 mEq/L (3.5-5.1)
[2023-11-25 10:01] LABS: HEMATOCRIT. 34.3 % (42.0-52.0); HEMOGLOBIN. 11.5 g/dL (14.0-18.0); MEAN CORPUSCULAR HGB CONC 33.6 g/dL (31.0-37.0); MEAN CORPUSCULAR VOLUME 104.1 fL (80.0-94.0); RED BLOOD CELL COUNT 3.29 mill/uL (4.7-6.1)
[2023-11-25 10:25] LABS: DIFFERENTIAL COMMENT 1; PLATELET 23 x1000/uL (130-400)
[2023-11-25 10:46] LABS: PHOSPHORUS 2.8 mg/dL (2.5-4.9)
[2023-11-25] MEDS: DEXMEDETOMIDINE 400 MCG/100 ML 100 ML IV PRN (11:13)
[2023-11-25] MEDS: KCL 20MEQ/100ML PREMIX 100 ML IV SCH (11:20)
[2023-11-25] MEDS: CEFEPIME 2GM/100ML 100 ML IV SCH (15:13)
[2023-11-25 16:41] LABS: NUCLEATED RED BLOOD CELLS 6 /100 WBC
[2023-11-25 16:42] LABS: ANISOCYTOSIS 1+; PLATELET ESTIMATE MARKEDLY DECREASED
[2023-11-25] MEDS: MAGNESIUM 2 G PREMIX 50 ML IV NR (17:27)
[2023-11-26] VITALS (104 sets, daily range): BP systolic 86–147; BP diastolic 48–96; PULSE 68–88; RESP 19–35; TEMP 97.8–99.2
[2023-11-26] MEDS: BLOOD SUGAR DIAGNOSTIC STRIP TEST SCH (00:15)
[2023-11-26] MEDS: INSULIN LISPRO 100 UNITS/ML SUBCUT SCH (00:29)
[2023-11-26 05:39] LABS: HEMATOCRIT. 35.9 % (42.0-52.0); HEMOGLOBIN. 11.9 g/dL (14.0-18.0); MEAN CORPUSCULAR HEMOGLOBIN 34.6 pg (28.0-32.0); MEAN CORPUSCULAR HGB CONC 33.2 g/dL (31.0-37.0); MEAN CORPUSCULAR VOLUME 104.3 fL (80.0-94.0); MEAN PLATELET VOLUME 9.9 fl (7.4-10.4); RED BLOOD CELL COUNT 3.44 mill/uL (4.7-6.1)
[2023-11-26 05:52] LABS: POTASSIUM 3.5 mEq/L (3.5-5.1)
[2023-11-26 05:53] LABS: CALCIUM 8.3 mg/dL (8.7-10.4)
[2023-11-26 06:50] LABS: DIFFERENTIAL COMMENT 1; PLATELET 20 x1000/uL (130-400)
[2023-11-26] MEDS: POTASSIUM CHLORIDE 20MEQ/PACKET PO NR (08:44)
[2023-11-26 09:50] LABS: BG BASE EXCESS 2.9 mmol/L (-2.0-2.0); BG CARBOXYHEMOGLOBIN 0.1 % (0.5-1.5); BG DEOXYHEMOGLOBIN 8.6 % (0.0-5.0); BG FRACTION INSPIRED OXYGEN 70; BG HCO3 ACT 26.8 mmol/L (22.0-26.0); BG METHEMOGLOBIN 0.1 % (0.0-1.5); BG OXYGEN SATURATION 91.4 % (92.0-98.5); BG OXYHEMOGLOBIN 91.2 % (94.0-97.0); BG PCO2 38.8 mmHg (35.0-45.0); BG PH 7.457 (7.350-7.450); BG PO2 64.1 mmHg (75.0-100.0); BG SAMPLE SITE LEFT RADIAL; BG TOTAL HEMOGLOBIN 13.2 g/dL (12.0-18.0); BG TOTAL RESPIRATORY RATE 28 b/min; BG VENT MODE VENT - AC
[2023-11-26] MEDS: LACTULOSE 20G/30ML UDC NG SCH (14:00)
[2023-11-26 14:09] LABS: NUCLEATED RED BLOOD CELLS 7 /100 WBC; PLATELET ESTIMATE MARKEDLY DECREASED
[2023-11-26 14:11] LABS: ANISOCYTOSIS 1+
[2023-11-27] VITALS (97 sets, daily range): BP systolic 71–153; BP diastolic 24–103; PULSE 55–90; RESP 22–40; TEMP 97.2–98.6
[2023-11-27 06:23] LABS: AMMONIA 57 uMol/L (<32)
[2023-11-27 06:33] LABS: CALCIUM 8.6 mg/dL (8.7-10.4); CARBON DIOXIDE 25 mEq/L (21-32); CHLORIDE 111 mEq/L (98-107); POTASSIUM 3.6 mEq/L (3.5-5.1); SODIUM 145 mEq/L (136-145)
[2023-11-27 06:39] LABS: CREATININE 2.1 mg/dL (0.6-1.3); GLUCOSE 156 mg/dL (70-105); UREA NITROGEN BLOOD 65 mg/dL (9-23)
[2023-11-27 06:41] LABS: PHOSPHORUS 3.6 mg/dL (2.5-4.9)
[2023-11-27 07:06] LABS: HEMATOCRIT. 36.6 % (42.0-52.0); HEMOGLOBIN. 12.1 g/dL (14.0-18.0); MEAN CORPUSCULAR HEMOGLOBIN 33.7 pg (28.0-32.0); MEAN CORPUSCULAR VOLUME 102.2 fL (80.0-94.0); MEAN PLATELET VOLUME 9.7 fl (7.4-10.4); RED BLOOD CELL COUNT 3.58 mill/uL (4.7-6.1); RED CELL DISTRIBUTION WIDTH 18.7 % (11.6-14.6); WHITE BLOOD COUNT 11.3 x1000/uL (4.5-11.0)
[2023-11-27 07:20] LABS: DIFFERENTIAL COMMENT 1
[2023-11-27 07:22] LABS: PLATELET 17 x1000/uL (130-400)
[2023-11-27] MEDS: LORAZEPAM 2MG/ML INJ IV PRN ×2 (08:39→15:42)
[2023-11-27 10:18] LABS: BG BASE EXCESS -0.1 mmol/L (-2.0-2.0); BG CARBOXYHEMOGLOBIN 0.2 % (0.5-1.5); BG DEOXYHEMOGLOBIN 8.1 % (0.0-5.0); BG FRACTION INSPIRED OXYGEN 70; BG HCO3 ACT 23.2 mmol/L (22.0-26.0); BG METHEMOGLOBIN 0.2 % (0.0-1.5); BG OXYGEN SATURATION 91.9 % (92.0-98.5); BG OXYHEMOGLOBIN 91.5 % (94.0-97.0); BG PCO2 33.8 mmHg (35.0-45.0); BG PH 7.454 (7.350-7.450); BG PO2 65.5 mmHg (75.0-100.0); BG SAMPLE SITE RIGHT RADIAL; BG TOTAL HEMOGLOBIN 13.4 g/dL (12.0-18.0); BG VENT MODE VENT - AC
[2023-11-27] MEDS: POTASSIUM CHLORIDE 20MEQ/PACKET NG NR (10:41)
[2023-11-27 11:30] LABS: NUCLEATED RED BLOOD CELLS 2 /100 WBC
[2023-11-27 11:31] LABS: ANISOCYTOSIS 1+; PLATELET ESTIMATE MARKEDLY DECREASED
[2023-11-27 12:53] LABS: CHLORIDE 111 mEq/L (98-107); POTASSIUM 3.8 mEq/L (3.5-5.1); SODIUM 143 mEq/L (136-145)
[2023-11-27 12:54] LABS: CARBON DIOXIDE 24 mEq/L (21-32)
[2023-11-27 12:55] LABS: CALCIUM 8.8 mg/dL (8.7-10.4)
[2023-11-27 12:59] LABS: CREATININE 2.2 mg/dL (0.6-1.3); GLUCOSE 170 mg/dL (70-105); UREA NITROGEN BLOOD 69 mg/dL (9-23)
[2023-11-27 13:01] LABS: ALANINE AMINOTRANSFERASE 252 IU/L (10-49); ALBUMIN 2.3 g/dL (3.2-4.8); ASPARTATE AMINOTRANSFERASE 301 IU/L (<34)
[2023-11-27 13:02] LABS: BILIRUBIN TOTAL 7.6 mg/dL (0.1-1.0); PROTEIN TOTAL 5.1 g/dL (6.0-8.3)
[2023-11-27] MEDS: MIDODRINE HCL 5MG TABLET PO SCH (18:36)
[2023-11-27 22:13] LABS: POTASSIUM 5.1 mEq/L (3.5-5.1)
[2023-11-27 22:14] LABS: CALCIUM 8.4 mg/dL (8.7-10.4)
[2023-11-27 22:19] LABS: CREATININE 2.2 mg/dL (0.6-1.3)
[2023-11-28] VITALS (107 sets, daily range): BP systolic 83–191; BP diastolic 59–96; PULSE 44–135; RESP 18–40; TEMP 97.3–99
[2023-11-28 05:47] LABS: HEMATOCRIT. 40.6 % (42.0-52.0); HEMOGLOBIN. 13.5 g/dL (14.0-18.0); MEAN CORPUSCULAR HEMOGLOBIN 35.1 pg (28.0-32.0); MEAN CORPUSCULAR HGB CONC 33.2 g/dL (31.0-37.0); MEAN CORPUSCULAR VOLUME 105.7 fL (80.0-94.0); MEAN PLATELET VOLUME 10.5 fl (7.4-10.4); RED BLOOD CELL COUNT 3.84 mill/uL (4.7-6.1); RED CELL DISTRIBUTION WIDTH 19.4 % (11.6-14.6); WHITE BLOOD COUNT 16.7 x1000/uL (4.5-11.0)
[2023-11-28 05:58] LABS: CALCIUM 8.7 mg/dL (8.7-10.4); POTASSIUM 4.4 mEq/L (3.5-5.1)
[2023-11-28 06:04] LABS: CREATININE 2.3 mg/dL (0.6-1.3)
[2023-11-28 06:07] LABS: DIFFERENTIAL COMMENT 1
[2023-11-28 06:08] LABS: PLATELET 14 x1000/uL (130-400)
[2023-11-28 10:29] LABS: BG BASE EXCESS -1.7 mmol/L (-2.0-2.0); BG CARBOXYHEMOGLOBIN 0.8 % (0.5-1.5); BG DEOXYHEMOGLOBIN 7.5 % (0.0-5.0); BG FRACTION INSPIRED OXYGEN 80; BG METHEMOGLOBIN 0.3 % (0.0-1.5); BG OXYGEN SATURATION 92.4 % (92.0-98.5); BG OXYHEMOGLOBIN 91.4 % (94.0-97.0); BG PH 7.428 (7.350-7.450); BG PO2 69.5 mmHg (75.0-100.0); BG SAMPLE SITE RIGHT RADIAL; BG TOTAL HEMOGLOBIN 13.3 g/dL (12.0-18.0); BG VENT MODE VENT - AC
[2023-11-28 10:32] LABS: NUCLEATED RED BLOOD CELLS 2 /100 WBC
[2023-11-28 10:33] LABS: ANISOCYTOSIS 2+; PLATELET ESTIMATE MARKEDLY DECREASED
[2023-11-28 15:06] LABS: 7-AMINOCLONAZEPAM CONFIRM Negative (.); ALPRAZOLAM CONFIRM Negative (.); BENZODIAZEPINE SCREEN ++POSITIVE++ ng/mL (Cutoff:20); CHLORDIAZEPOXIDE CONFIRM Negative (.); CLONAZEPAM CONFIRM Negative (.); DESALKYLFLURAZEPAM CONFIRM Negative (.); DESMETHYLCHLORDIAZEPOXIDE Negative (.); DESMETHYLDIAZEPAM CONFIRM Negative (.); DIAZEPAM CONFIRM Negative (.); FLURAZEPAM CONFIRM Negative (.); LORAZEPAM CONFIRM Negative (.); MIDAZOLAM CONFIRM 265.7 ng/mL (.); OXAZEPAM CONFIRM Negative (.); OXYCODONE SCREEN Negative ng/mL (Cutoff:5); TEMAZEPAM CONFIRM Negative (.); TRIAZOLAM CONFIRM Negative (.)
[2023-11-28] MEDS: DOPAMINE 800MG PREMIX (DOUBLE) 250 ML IV PRN (17:41)
[2023-11-28] MEDS: CHLORDIAZEPOXIDE 25MG CAPSULE PO SCH (21:57)
[2023-11-29] VITALS (102 sets, daily range): BP systolic 81–129; BP diastolic 43–96; PULSE 61–129; RESP 22–39; TEMP 98.4–102
[2023-11-29 04:40] LABS: POTASSIUM 4.2 mEq/L (3.5-5.1)
[2023-11-29 04:41] LABS: CALCIUM 8.2 mg/dL (8.7-10.4)
[2023-11-29 04:43] LABS: HEMOGLOBIN. 12.7 g/dL (14.0-18.0); MEAN CORPUSCULAR HEMOGLOBIN 34.6 pg (28.0-32.0); MEAN CORPUSCULAR HGB CONC 32.6 g/dL (31.0-37.0); MEAN CORPUSCULAR VOLUME 106.1 fL (80.0-94.0); MEAN PLATELET VOLUME 12.4 fl (7.4-10.4); RED BLOOD CELL COUNT 3.68 mill/uL (4.7-6.1); RED CELL DISTRIBUTION WIDTH 19.4 % (11.6-14.6); WHITE BLOOD COUNT 19.7 x1000/uL (4.5-11.0)
[2023-11-29 04:46] LABS: CREATININE 2.9 mg/dL (0.6-1.3)
[2023-11-29 07:24] LABS: PLATELET 47 x1000/uL (130-400)
[2023-11-29 07:25] LABS: DIFFERENTIAL COMMENT 1
[2023-11-29 09:54] LABS: BG BASE EXCESS -6.5 mmol/L (-2.0-2.0); BG CARBOXYHEMOGLOBIN 0.1 % (0.5-1.5); BG DEOXYHEMOGLOBIN 5.7 % (0.0-5.0); BG FRACTION INSPIRED OXYGEN 90; BG HCO3 ACT 19.1 mmol/L (22.0-26.0); BG METHEMOGLOBIN 0.3 % (0.0-1.5); BG OXYGEN SATURATION 94.3 % (92.0-98.5); BG OXYHEMOGLOBIN 93.9 % (94.0-97.0); BG PCO2 38.2 mmHg (35.0-45.0); BG PH 7.316 (7.350-7.450); BG PO2 78.5 mmHg (75.0-100.0); BG SAMPLE SITE RIGHT RADIAL; BG TOTAL HEMOGLOBIN 13.8 g/dL (12.0-18.0); BG VENT MODE VENT - AC
[2023-11-29] MEDS: KETAMINE HCL 100 MG in SODIUM CHLORIDE 0.9% 98 ML IV PRN (11:10)
[2023-11-29 11:57] LABS: ANISOCYTOSIS 2+; PLATELET ESTIMATE MARKEDLY DECREASED; TARGET CELLS 2+
[2023-11-29 13:35] LABS: CREATINE KINASE 52 IU/L (46-171)
[2023-11-29] MEDS: ACETAMINOPHEN 325MG TABLET PO PRN (20:08)
[2023-11-29] MEDS: PROPOFOL 10MG/ML 100ML 100 ML IV PRN (21:52)
[2023-11-30] VITALS (97 sets, daily range): BP systolic 82–117; BP diastolic 48–70; PULSE 71–94; RESP 15–28; TEMP 97.5–99.9; O2SAT 95
[2023-11-30] MEDS: CEFEPIME 2GM/100ML 100 ML IV SCH (00:48)
[2023-11-30 06:14] LABS: HEMATOCRIT. 36.9 % (42.0-52.0); HEMOGLOBIN. 11.8 g/dL (14.0-18.0); MEAN CORPUSCULAR HEMOGLOBIN 34.3 pg (28.0-32.0); MEAN CORPUSCULAR VOLUME 107.2 fL (80.0-94.0); PLATELET 93 x1000/uL (130-400); RED BLOOD CELL COUNT 3.44 mill/uL (4.7-6.1); RED CELL DISTRIBUTION WIDTH 20.3 % (11.6-14.6); WHITE BLOOD COUNT 25.8 x1000/uL (4.5-11.0)
[2023-11-30 06:22] LABS: INR 1.9; POTASSIUM 4.7 mEq/L (3.5-5.1); PROTHROMBIN TIME 20.5 sec (9.6-11.0)
[2023-11-30 06:23] LABS: CALCIUM 7.6 mg/dL (8.7-10.4)
[2023-11-30 06:26] LABS: DIFFERENTIAL COMMENT 1
[2023-11-30 06:33] LABS: CREATININE 4.7 mg/dL (0.6-1.3)
[2023-11-30] MEDS: LIDOCAINE HCL 1% 10 MG/ML 10ML VIAL ONE (09:54)
[2023-11-30 10:40] LABS: NUCLEATED RED BLOOD CELLS 3 /100 WBC
[2023-11-30 10:41] LABS: ANISOCYTOSIS 2+; PLATELET ESTIMATE DECREASED
[2023-11-30] MEDS: DEXTROSE 5% WATER 1,000 ML IV SCH (11:30)
[2023-11-30] MEDS ORDERED: ROCURONIUM BROMIDE 10MG/ML VIAL 5ML IV ONE ×2 (13:47→13:50)
[2023-11-30 15:17] LABS: BG CARBOXYHEMOGLOBIN 0.5 % (0.5-1.5); BG DEOXYHEMOGLOBIN 8.1 % (0.0-5.0); BG FRACTION INSPIRED OXYGEN 50; BG HCO3 ACT 17.5 mmol/L (22.0-26.0); BG METHEMOGLOBIN 0.3 % (0.0-1.5); BG OXYGEN SATURATION 91.8 % (92.0-98.5); BG OXYHEMOGLOBIN 91.1 % (94.0-97.0); BG PCO2 49.8 mmHg (35.0-45.0); BG PH 7.164 (7.350-7.450); BG PO2 78.2 mmHg (75.0-100.0); BG SAMPLE SITE RIGHT RADIAL; BG TOTAL RESPIRATORY RATE 18 b/min; BG VENT MODE VENT - AC
[2023-11-30 17:20] LABS: BG BASE EXCESS -11.3 mmol/L (-2.0-2.0); BG CARBOXYHEMOGLOBIN 0.1 % (0.5-1.5); BG DEOXYHEMOGLOBIN 8.1 % (0.0-5.0); BG HCO3 ACT 17.3 mmol/L (22.0-26.0); BG METHEMOGLOBIN 0.1 % (0.0-1.5); BG OXYGEN SATURATION 91.9 % (92.0-98.5); BG OXYHEMOGLOBIN 91.7 % (94.0-97.0); BG PCO2 49.1 mmHg (35.0-45.0); BG PH 7.164 (7.350-7.450); BG PO2 75.7 mmHg (75.0-100.0); BG SAMPLE SITE RIGHT RADIAL; BG TOTAL HEMOGLOBIN 13.4 g/dL (12.0-18.0); BG VENT MODE VENT - AC
[2023-11-30] MEDS: PHYTONADIONE 10MG/ML INJ SUBCUT SCH (18:26)
[2023-11-30] MEDS: MICAFUNGIN 100 MG in SODIUM CHLORIDE 0.9% 100 ML IV SCH (23:45)
[2023-12-01] VITALS (97 sets, daily range): BP systolic 72–137; BP diastolic 47–74; PULSE 71–120; RESP 21–32; TEMP 97.1–98.9
[2023-12-01 05:35] LABS: POTASSIUM 4.4 mEq/L (3.5-5.1)
[2023-12-01 05:36] LABS: CALCIUM 7.7 mg/dL (8.7-10.4)
[2023-12-01 05:37] LABS: HEMATOCRIT. 36.8 % (42.0-52.0); HEMOGLOBIN. 11.7 g/dL (14.0-18.0); MEAN CORPUSCULAR HEMOGLOBIN 34.1 pg (28.0-32.0); MEAN CORPUSCULAR HGB CONC 31.9 g/dL (31.0-37.0); MEAN CORPUSCULAR VOLUME 106.7 fL (80.0-94.0); MEAN PLATELET VOLUME 10.7 fl (7.4-10.4); PLATELET 95 x1000/uL (130-400); RED BLOOD CELL COUNT 3.45 mill/uL (4.7-6.1); RED CELL DISTRIBUTION WIDTH 20.2 % (11.6-14.6); WHITE BLOOD COUNT 32.3 x1000/uL (4.5-11.0)
[2023-12-01 05:54] LABS: CREATININE 5.7 mg/dL (0.6-1.3)
[2023-12-01 06:32] LABS: DIFFERENTIAL COMMENT 1
[2023-12-01 09:04] LABS: BG BASE EXCESS -11.1 mmol/L (-2.0-2.0); BG CARBOXYHEMOGLOBIN 0.6 % (0.5-1.5); BG DEOXYHEMOGLOBIN 5.8 % (0.0-5.0); BG FRACTION INSPIRED OXYGEN 50; BG HCO3 ACT 15.2 mmol/L (22.0-26.0); BG METHEMOGLOBIN 0.3 % (0.0-1.5); BG OXYGEN SATURATION 94.1 % (92.0-98.5); BG OXYHEMOGLOBIN 93.3 % (94.0-97.0); BG PCO2 35.5 mmHg (35.0-45.0); BG PH 7.249 (7.350-7.450); BG PO2 81.1 mmHg (75.0-100.0); BG SAMPLE SITE RIGHT RADIAL; BG TOTAL HEMOGLOBIN 12.3 g/dL (12.0-18.0); BG VENT MODE VENT - AC
[2023-12-01 09:30] LABS: HEPATITIS B SURFACE ANTIGEN NEGATIVE (Negative)
[2023-12-01] MEDS: LIDOCAINE HCL 1% 10 MG/ML 10ML VIAL ONE (09:33)
[2023-12-01 09:51] LABS: HEPATITIS A AB IGM NEGATIVE (Negative)
[2023-12-01 09:52] LABS: HEPATITIS B CORE AB IGM NEGATIVE (Negative); HEPATITIS C AB NON REACTIVE (Neg) (Negative)
[2023-12-01 11:06] LABS: ANISOCYTOSIS 2+; NUCLEATED RED BLOOD CELLS 1 /100 WBC; PLATELET ESTIMATE DECREASED; TARGET CELLS 1+
[2023-12-01] MEDS: HYDROCODONE/ACETAMINOPHEN 5/325MG TABLET PO NR (11:33)
[2023-12-01] MEDS ORDERED: FENTANYL CITRATE/PF 50MCG/ML 2ML VIAL IV PRN (12:15)
[2023-12-01] MEDS: SODIUM BICARBONATE 8.4% 1 MEQ/ML 50ML SYR IV SCH (13:10)
[2023-12-01] MEDS: MEROPENEM 1G/100ML 100 ML IV SCH (18:22)
[2023-12-02] VITALS (107 sets, daily range): BP systolic 71–122; BP diastolic 49–80; PULSE 86–111; RESP 9–35; TEMP 97.3–98.3
[2023-12-02] MEDS ORDERED: CEFEPIME 1GM/50ML 50 ML IV SCH
[2023-12-02 05:13] LABS: HEMATOCRIT. 36.2 % (42.0-52.0); MEAN CORPUSCULAR HEMOGLOBIN 34.8 pg (28.0-32.0); MEAN CORPUSCULAR HGB CONC 33.2 g/dL (31.0-37.0); MEAN CORPUSCULAR VOLUME 104.7 fL (80.0-94.0); MEAN PLATELET VOLUME 11.6 fl (7.4-10.4); PLATELET 85 x1000/uL (130-400); RED BLOOD CELL COUNT 3.46 mill/uL (4.7-6.1)
[2023-12-02 05:30] LABS: CHLORIDE 106 mEq/L (98-107); POTASSIUM 4.4 mEq/L (3.5-5.1); SODIUM 144 mEq/L (136-145)
[2023-12-02 05:31] LABS: CARBON DIOXIDE 20 mEq/L (21-32)
[2023-12-02 05:36] LABS: GLUCOSE 75 mg/dL (70-105)
[2023-12-02 05:38] LABS: ALANINE AMINOTRANSFERASE 297 IU/L (10-49); ALBUMIN 2.3 g/dL (3.2-4.8); ASPARTATE AMINOTRANSFERASE 343 IU/L (<34)
[2023-12-02 05:39] LABS: BILIRUBIN TOTAL 11.6 mg/dL (0.1-1.0); PROTEIN TOTAL 5.6 g/dL (6.0-8.3)
[2023-12-02 05:43] LABS: UREA NITROGEN BLOOD 105 mg/dL (9-23)
[2023-12-02 05:44] LABS: CREATININE 5.2 mg/dL (0.6-1.3)
[2023-12-02 06:53] LABS: DIFFERENTIAL COMMENT 1
[2023-12-02 09:00] LABS: BG BASE EXCESS -4.1 mmol/L (-2.0-2.0); BG CARBOXYHEMOGLOBIN 0.7 % (0.5-1.5); BG DEOXYHEMOGLOBIN 3.9 % (0.0-5.0); BG FRACTION INSPIRED OXYGEN 50; BG HCO3 ACT 18.9 mmol/L (22.0-26.0); BG METHEMOGLOBIN 0.2 % (0.0-1.5); BG OXYGEN SATURATION 96.1 % (92.0-98.5); BG OXYHEMOGLOBIN 95.2 % (94.0-97.0); BG PCO2 28.7 mmHg (35.0-45.0); BG PH 7.437 (7.350-7.450); BG PO2 89.5 mmHg (75.0-100.0); BG SAMPLE SITE RIGHT RADIAL; BG TOTAL HEMOGLOBIN 12.3 g/dL (12.0-18.0); BG VENT MODE VENT - AC
[2023-12-02 13:37] LABS: NUCLEATED RED BLOOD CELLS 3 /100 WBC
[2023-12-02 13:39] LABS: TARGET CELLS 1+
[2023-12-02 13:41] LABS: ANISOCYTOSIS 2+
[2023-12-02 13:42] LABS: PLATELET ESTIMATE MARKEDLY DECREASED
[2023-12-02] MEDS: METOCLOPRAMIDE HCL 10MG/2ML VIAL IV SCH (15:21)
[2023-12-02] MEDS: ALBUMIN HUMAN 12.5GM/50ML (25%) IV NR (16:30)
[2023-12-03] VITALS (95 sets, daily range): BP systolic 79–175; BP diastolic 42–85; PULSE 60–116; RESP 12–31; TEMP 96.8–99.7
[2023-12-03 06:02] LABS: HEMOGLOBIN. 10.7 g/dL (14.0-18.0); MEAN CORPUSCULAR HEMOGLOBIN 34.9 pg (28.0-32.0); MEAN CORPUSCULAR HGB CONC 33.4 g/dL (31.0-37.0); MEAN CORPUSCULAR VOLUME 104.3 fL (80.0-94.0); MEAN PLATELET VOLUME 10.9 fl (7.4-10.4); PLATELET 73 x1000/uL (130-400); RED BLOOD CELL COUNT 3.07 mill/uL (4.7-6.1); RED CELL DISTRIBUTION WIDTH 20.5 % (11.6-14.6); WHITE BLOOD COUNT 22.1 x1000/uL (4.5-11.0)
[2023-12-03 06:04] LABS: INR 1.9; PROTHROMBIN TIME 19.9 sec (9.6-11.0)
[2023-12-03 06:10] LABS: POTASSIUM 4.3 mEq/L (3.5-5.1)
[2023-12-03 06:11] LABS: CALCIUM 8.3 mg/dL (8.7-10.4)
[2023-12-03 06:13] LABS: DIFFERENTIAL COMMENT 1
[2023-12-03 06:17] LABS: AMMONIA 54 uMol/L (<32)
[2023-12-03 06:23] LABS: CREATININE 6.1 mg/dL (0.6-1.3)
[2023-12-03 06:53] LABS: GIANT PLATELETS 1+; NUCLEATED RED BLOOD CELLS 2 /100 WBC; PLATELET ESTIMATE NORMAL; TARGET CELLS 4+
[2023-12-03 06:54] LABS: TEAR DROP CELLS 1+
[2023-12-03 09:07] LABS: BG BASE EXCESS -3.4 mmol/L (-2.0-2.0); BG CARBOXYHEMOGLOBIN 0.8 % (0.5-1.5); BG DEOXYHEMOGLOBIN 3.4 % (0.0-5.0); BG FRACTION INSPIRED OXYGEN 50; BG METHEMOGLOBIN 0.2 % (0.0-1.5); BG OXYGEN SATURATION 96.6 % (92.0-98.5); BG OXYHEMOGLOBIN 95.6 % (94.0-97.0); BG PH 7.427 (7.350-7.450); BG PO2 94.8 mmHg (75.0-100.0); BG SAMPLE SITE RIGHT RADIAL; BG TOTAL HEMOGLOBIN 12.2 g/dL (12.0-18.0); BG VENT MODE VENT - AC
[2023-12-03] MEDS: METHYLPREDNISOLONE SOD SUCC 40MG/ML (ACT-O-VIAL) IV SCH (10:49)
[2023-12-03] MEDS: SUCRALFATE 1G TABLET NG SCH (12:13)
[2023-12-03] MEDS: ALBUMIN HUMAN 25GM/100ML (25%) IV NR (12:13)
[2023-12-03] MEDS: DEXT 5%/0.45% NACL 1000ML 1,000 ML IV SCH (12:18)
[2023-12-04] VITALS (81 sets, daily range): BP systolic 90–145; BP diastolic 52–79; PULSE 69–118; RESP 23–32; TEMP 97.1–99.7
[2023-12-04 06:14] LABS: HEMATOCRIT. 30.8 % (42.0-52.0); HEMOGLOBIN. 10.4 g/dL (14.0-18.0); MEAN CORPUSCULAR HEMOGLOBIN 34.7 pg (28.0-32.0); MEAN CORPUSCULAR HGB CONC 33.8 g/dL (31.0-37.0); MEAN CORPUSCULAR VOLUME 102.8 fL (80.0-94.0); MEAN PLATELET VOLUME 10.7 fl (7.4-10.4); PLATELET 82 x1000/uL (130-400); RED BLOOD CELL COUNT 2.99 mill/uL (4.7-6.1); RED CELL DISTRIBUTION WIDTH 20.3 % (11.6-14.6)
[2023-12-04 06:22] LABS: DIFFERENTIAL COMMENT 1
[2023-12-04 06:29] LABS: CHLORIDE 98 mEq/L (98-107); POTASSIUM 4.4 mEq/L (3.5-5.1); SODIUM 137 mEq/L (136-145)
[2023-12-04 06:30] LABS: CALCIUM 8.9 mg/dL (8.7-10.4); CARBON DIOXIDE 19 mEq/L (21-32)
[2023-12-04 06:35] LABS: GLUCOSE 141 mg/dL (70-105)
[2023-12-04 07:48] LABS: UREA NITROGEN BLOOD 123 mg/dL (9-23)
[2023-12-04 07:51] LABS: PHOSPHORUS 8.6 mg/dL (2.5-4.9)
[2023-12-04 09:52] LABS: ANISOCYTOSIS 2+; NUCLEATED RED BLOOD CELLS 23 /100 WBC; PLATELET ESTIMATE DECREASED; TARGET CELLS 2+
[2023-12-04] MEDS: LANTHANUM CARBONATE 500MG CHEW TABLET PO SCH (12:46)
[2023-12-04] MEDS: MIDODRINE HCL 5MG TABLET PO SCH (12:46)
[2023-12-04] MEDS: ALBUMIN HUMAN 12.5GM/50ML (25%) IV NR (12:47)
[2023-12-04] MEDS: METHYLPREDNISOLONE SOD SUCC 40MG/ML (ACT-O-VIAL) IV SCH (19:32)
[2023-12-05] VITALS (41 sets, daily range): BP systolic 94–147; BP diastolic 57–90; PULSE 56–99; RESP 16–33; TEMP 97.5–98.1
[2023-12-05 08:16] LABS: HEMATOCRIT. 29.3 % (42.0-52.0); HEMOGLOBIN. 9.9 g/dL (14.0-18.0); MEAN CORPUSCULAR HEMOGLOBIN 34.8 pg (28.0-32.0); MEAN CORPUSCULAR HGB CONC 33.7 g/dL (31.0-37.0); MEAN CORPUSCULAR VOLUME 103.4 fL (80.0-94.0); MEAN PLATELET VOLUME 10.2 fl (7.4-10.4); PLATELET 61 x1000/uL (130-400); RED BLOOD CELL COUNT 2.83 mill/uL (4.7-6.1); RED CELL DISTRIBUTION WIDTH 19.6 % (11.6-14.6)
[2023-12-05 08:21] LABS: DIFFERENTIAL COMMENT 1
[2023-12-05 08:26] LABS: POTASSIUM 4.5 mEq/L (3.5-5.1)
[2023-12-05 08:28] LABS: CALCIUM 8.4 mg/dL (8.7-10.4)
[2023-12-05 08:50] LABS: BG CARBOXYHEMOGLOBIN 0.5 % (0.5-1.5); BG DEOXYHEMOGLOBIN 5.5 % (0.0-5.0); BG FRACTION INSPIRED OXYGEN 45; BG HCO3 ACT 17.9 mmol/L (22.0-26.0); BG METHEMOGLOBIN 0.2 % (0.0-1.5); BG OXYGEN SATURATION 94.5 % (92.0-98.5); BG OXYHEMOGLOBIN 93.8 % (94.0-97.0); BG PCO2 29.7 mmHg (35.0-45.0); BG PH 7.398 (7.350-7.450); BG PO2 81.4 mmHg (75.0-100.0); BG SAMPLE SITE RIGHT RADIAL; BG TOTAL HEMOGLOBIN 10.1 g/dL (12.0-18.0); BG VENT MODE VENT - AC
[2023-12-05 08:50] LABS: NUCLEATED RED BLOOD CELLS 5 /100 WBC
[2023-12-05 08:51] LABS: PLATELET ESTIMATE DECREASED
[2023-12-05 08:52] LABS: ANISOCYTOSIS 1+; TARGET CELLS 3+
[2023-12-05] MEDS: MIDODRINE HCL 5MG TABLET PO SCH (09:04)
[2023-12-05 09:37] LABS: CREATININE 6.9 mg/dL (0.6-1.3)
[2023-12-05 09:40] LABS: PHOSPHORUS 10.4 mg/dL (2.5-4.9)
[2023-12-05] MEDS ORDERED: LEVETIRACETAM 500 MG in SODIUM CHLORIDE 0.9% 100 ML IV SCH (15:15)
[2023-12-05] MEDS ORDERED: LORAZEPAM 2MG/ML INJ IV PRN (15:15)
[2023-12-05] MEDS: LEVETIRACETAM 500MG PREMIX 100 ML IV SCH (15:46)
[2023-12-06] VITALS (123 sets, daily range): BP systolic 78–129; BP diastolic 46–87; PULSE 61–113; RESP 21–31; TEMP 97.2–98.5
[2023-12-06 05:45] LABS: HEMATOCRIT. 31.2 % (42.0-52.0); HEMOGLOBIN. 10.5 g/dL (14.0-18.0); MEAN CORPUSCULAR HEMOGLOBIN 34.7 pg (28.0-32.0); MEAN CORPUSCULAR HGB CONC 33.5 g/dL (31.0-37.0); MEAN CORPUSCULAR VOLUME 103.4 fL (80.0-94.0); MEAN PLATELET VOLUME 11.2 fl (7.4-10.4); PLATELET 65 x1000/uL (130-400); RED BLOOD CELL COUNT 3.02 mill/uL (4.7-6.1); RED CELL DISTRIBUTION WIDTH 20.9 % (11.6-14.6)
[2023-12-06 05:56] LABS: POTASSIUM 5.1 mEq/L (3.5-5.1)
[2023-12-06 05:57] LABS: CALCIUM 8.2 mg/dL (8.7-10.4)
[2023-12-06 06:13] LABS: CREATININE 7.6 mg/dL (0.6-1.3)
[2023-12-06 06:55] LABS: DIFFERENTIAL COMMENT 1
[2023-12-06] MEDS ORDERED: LEVETIRACETAM 500 MG in SODIUM CHLORIDE 0.9% 100 ML IV SCH (07:30)
[2023-12-06 13:03] LABS: ANISOCYTOSIS 2+; NUCLEATED RED BLOOD CELLS 11 /100 WBC; PLATELET ESTIMATE DECREASED; TARGET CELLS 2+
[2023-12-06] MEDS ORDERED: IPRATROPIUM/ALBUTEROL 0.5-3(2.5)MG/3ML NEB HHN PRN (14:15)
[2023-12-06] MEDS: PREDNISONE 20MG TABLET PO SCH (14:44)
[2023-12-06] MEDS: ALBUMIN HUMAN 12.5GM/50ML (25%) IV NR (16:39)
[2023-12-06 16:59] LABS: INR 1.8; PROTHROMBIN TIME 19.1 sec (9.6-11.0)
[2023-12-06] MEDS: ALBUMIN HUMAN 25GM/100ML (25%) IV NR (18:15)
[2023-12-07] VITALS (78 sets, daily range): BP systolic 78–120; BP diastolic 45–70; PULSE 69–99; RESP 23–32; TEMP 97–98.5
[2023-12-07] MEDS: IPRATROPIUM/ALBUTEROL 0.5-3(2.5)MG/3ML NEB HHN SCH (00:51)
[2023-12-07 05:35] LABS: HEMATOCRIT. 28.3 % (42.0-52.0); HEMOGLOBIN. 9.6 g/dL (14.0-18.0); MEAN CORPUSCULAR HEMOGLOBIN 34.9 pg (28.0-32.0); MEAN CORPUSCULAR VOLUME 102.5 fL (80.0-94.0); MEAN PLATELET VOLUME 10.3 fl (7.4-10.4); RED BLOOD CELL COUNT 2.76 mill/uL (4.7-6.1); RED CELL DISTRIBUTION WIDTH 20.3 % (11.6-14.6)
[2023-12-07 06:03] LABS: POTASSIUM 4.5 mEq/L (3.5-5.1)
[2023-12-07 06:04] LABS: CALCIUM 7.8 mg/dL (8.7-10.4)
[2023-12-07 06:10] LABS: INR 1.8; PROTHROMBIN TIME 19.3 sec (9.6-11.0)
[2023-12-07 06:15] LABS: CREATININE 6.4 mg/dL (0.6-1.3)
[2023-12-07 06:36] LABS: DIFFERENTIAL COMMENT 1
[2023-12-07] MEDS ORDERED: LIDOCAINE HCL 1% 10 MG/ML 10ML VIAL ONE (07:35)
[2023-12-07 10:00] LABS: BG BASE EXCESS -6.3 mmol/L (-2.0-2.0); BG CARBOXYHEMOGLOBIN 0.3 % (0.5-1.5); BG DEOXYHEMOGLOBIN 1.9 % (0.0-5.0); BG FRACTION INSPIRED OXYGEN 45; BG HCO3 ACT 16.7 mmol/L (22.0-26.0); BG METHEMOGLOBIN 0.3 % (0.0-1.5); BG OXYGEN SATURATION 98.1 % (92.0-98.5); BG OXYHEMOGLOBIN 97.5 % (94.0-97.0); BG PCO2 25.6 mmHg (35.0-45.0); BG PH 7.433 (7.350-7.450); BG PO2 128.7 mmHg (75.0-100.0); BG TOTAL HEMOGLOBIN 10.3 g/dL (12.0-18.0); BG VENT MODE VENT - AC
[2023-12-07] MEDS: SODIUM CHLORIDE 0.9% 1,000 ML IV SCH (11:42)
[2023-12-07 15:24] LABS: NUCLEATED RED BLOOD CELLS 10 /100 WBC
[2023-12-07 15:25] LABS: ANISOCYTOSIS 2+; PLATELET ESTIMATE MARKEDLY DECREASED; TARGET CELLS 1+
[2023-12-07 15:26] LABS: PLATELET 43 x1000/uL (130-400)
[2023-12-08] VITALS (89 sets, daily range): BP systolic 47–123; BP diastolic 30–76; PULSE 68–107; RESP 25–35; TEMP 97.8–98
[2023-12-08 05:15] LABS: HEMATOCRIT. 27.8 % (42.0-52.0); HEMOGLOBIN. 9.4 g/dL (14.0-18.0); MEAN CORPUSCULAR HEMOGLOBIN 35.2 pg (28.0-32.0); MEAN CORPUSCULAR HGB CONC 33.7 g/dL (31.0-37.0); MEAN CORPUSCULAR VOLUME 104.2 fL (80.0-94.0); MEAN PLATELET VOLUME 11.2 fl (7.4-10.4); RED BLOOD CELL COUNT 2.67 mill/uL (4.7-6.1); RED CELL DISTRIBUTION WIDTH 21.7 % (11.6-14.6); WHITE BLOOD COUNT 20.2 x1000/uL (4.5-11.0)
[2023-12-08 05:24] LABS: DIFFERENTIAL COMMENT 1; POTASSIUM 5.2 mEq/L (3.5-5.1)
[2023-12-08 05:26] LABS: CALCIUM 6.4 mg/dL (8.7-10.4)
[2023-12-08 05:28] LABS: PLATELET 49 x1000/uL (130-400)
[2023-12-08 05:53] LABS: CREATININE 6.9 mg/dL (0.6-1.3)
[2023-12-08] MEDS: SODIUM POLYSTYRENE SULFONATE 15 G/60 ML BOT PO NR (08:38)
[2023-12-08 09:29] LABS: AMMONIA 60 uMol/L (<32)
[2023-12-08 10:10] LABS: BG BASE EXCESS -13.9 mmol/L (-2.0-2.0); BG CARBOXYHEMOGLOBIN 0.5 % (0.5-1.5); BG FRACTION INSPIRED OXYGEN 45; BG HCO3 ACT 11.4 mmol/L (22.0-26.0); BG METHEMOGLOBIN 0.3 % (0.0-1.5); BG OXYHEMOGLOBIN 95.2 % (94.0-97.0); BG PCO2 25.2 mmHg (35.0-45.0); BG PH 7.275 (7.350-7.450); BG PO2 102.2 mmHg (75.0-100.0); BG SAMPLE SITE RIGHT RADIAL; BG VENT MODE VENT - AC
[2023-12-08] MEDS: ALBUMIN HUMAN 25GM/100ML (25%) IV NR (11:02)
[2023-12-08] MEDS: SODIUM BICARBONATE 100 MEQ in DEXTROSE 5% WATER 900 ML IV SCH (11:02)
[2023-12-08] MEDS: DEXTROSE 50% WATER 50ML SYRINGE IV PRN (13:13)
[2023-12-08 15:38] LABS: NUCLEATED RED BLOOD CELLS 8 /100 WBC; PLATELET ESTIMATE MARKEDLY DECREASED
[2023-12-08 15:39] LABS: TARGET CELLS 1+
[2023-12-08] MEDS ORDERED: NOREPINEPHRINE 32 MG in DEXT 5% WATER 218 ML IV PRN (19:30)
[2023-12-09] VITALS (102 sets, daily range): BP systolic 41–171; BP diastolic 10–75; PULSE 93–125; RESP 24–37; TEMP 97.7–99.9
[2023-12-09 06:26] LABS: BG BASE EXCESS -16.3 mmol/L (-2.0-2.0); BG CARBOXYHEMOGLOBIN 0.6 % (0.5-1.5); BG DEOXYHEMOGLOBIN 9.2 % (0.0-5.0); BG FRACTION INSPIRED OXYGEN 50; BG HCO3 ACT 10.1 mmol/L (22.0-26.0); BG OXYGEN SATURATION 90.7 % (92.0-98.5); BG OXYHEMOGLOBIN 90.2 % (94.0-97.0); BG PCO2 26.2 mmHg (35.0-45.0); BG PH 7.206 (7.350-7.450); BG PO2 78.2 mmHg (75.0-100.0); BG SAMPLE SITE RIGHT BRACHIAL; BG TOTAL HEMOGLOBIN 10.6 g/dL (12.0-18.0); BG VENT MODE VENT - AC
[2023-12-09 06:41] LABS: INR 1.9; PROTHROMBIN TIME 19.9 sec (9.6-11.0)
[2023-12-09 06:53] LABS: HEMATOCRIT. 30.2 % (42.0-52.0); HEMOGLOBIN. 9.8 g/dL (14.0-18.0); MEAN CORPUSCULAR HEMOGLOBIN 34.9 pg (28.0-32.0); MEAN CORPUSCULAR HGB CONC 32.3 g/dL (31.0-37.0); MEAN PLATELET VOLUME 10.9 fl (7.4-10.4); RED CELL DISTRIBUTION WIDTH 22.3 % (11.6-14.6); WHITE BLOOD COUNT 18.6 x1000/uL (4.5-11.0)
[2023-12-09 07:05] LABS: DIFFERENTIAL COMMENT 1
[2023-12-09 07:17] LABS: CHLORIDE 93 mEq/L (98-107); SODIUM 131 mEq/L (136-145)
[2023-12-09 07:18] LABS: CARBON DIOXIDE 11 mEq/L (21-32)
[2023-12-09 07:23] LABS: GLUCOSE 114 mg/dL (70-105)
[2023-12-09 07:25] LABS: ALANINE AMINOTRANSFERASE 129 IU/L (10-49); ALBUMIN 2.6 g/dL (3.2-4.8); ASPARTATE AMINOTRANSFERASE 661 IU/L (<34)
[2023-12-09 07:26] LABS: BILIRUBIN TOTAL 25.7 mg/dL (0.1-1.0); PROTEIN TOTAL 5.3 g/dL (6.0-8.3)
[2023-12-09 07:38] LABS: UREA NITROGEN BLOOD 135 mg/dL (9-23)
[2023-12-09 07:39] LABS: CREATININE 7.3 mg/dL (0.6-1.3)
[2023-12-09] MEDS: DEXTROSE 50% WATER 50ML SYRINGE IV NR ×2 (09:06→18:24)
[2023-12-09] MEDS: SODIUM POLYSTYRENE SULFONATE 15 G/60 ML BOT PO NR ×2 (09:06→18:24)
[2023-12-09] MEDS: INSULIN REGULAR (HUMULIN R) 300UNITS/3ML VIAL IV NR ×2 (09:07→18:25)
[2023-12-09] MEDS: FENTANYL CITRATE/PF 50MCG/ML 2ML VIAL IV PRN (09:08)
[2023-12-09] MEDS: SODIUM BICARBONATE 8.4% 1 MEQ/ML 50ML SYR IV NR ×3 (09:09→18:24)
[2023-12-09] MEDS: CALCIUM GLUCONATE 1GM PREMIX 50 ML IV NR ×2 (10:42→18:25)
[2023-12-09 11:58] LABS: NUCLEATED RED BLOOD CELLS 9 /100 WBC; PLATELET ESTIMATE MARKEDLY DECREASED; TARGET CELLS 1+
[2023-12-09 11:59] LABS: ANISOCYTOSIS 3+; PLATELET 47 x1000/uL (130-400)
[2023-12-09] MEDS: ALBUMIN HUMAN 12.5GM/50ML (25%) IV NR (12:37)
[2023-12-09 17:41] LABS: POTASSIUM 6.4 mEq/L (3.5-5.1)
[2023-12-09 23:57] LABS: BG BASE EXCESS -27.6 mmol/L (-2.0-2.0); BG CARBOXYHEMOGLOBIN 0.5 % (0.5-1.5); BG DEOXYHEMOGLOBIN 11.9 % (0.0-5.0); BG FRACTION INSPIRED OXYGEN 100; BG HCO3 ACT 5.6 mmol/L (22.0-26.0); BG METHEMOGLOBIN 0.8 % (0.0-1.5); BG OXYGEN SATURATION 87.9 % (92.0-98.5); BG OXYHEMOGLOBIN 86.8 % (94.0-97.0); BG PCO2 39.1 mmHg (35.0-45.0); BG PH 6.776 (7.350-7.450); BG PO2 90.6 mmHg (75.0-100.0); BG SAMPLE SITE RIGHT BRACHIAL; BG TOTAL RESPIRATORY RATE 28 b/min; BG VENT MODE VENT - AC
[2023-12-10] VITALS (11 sets, daily range): BP systolic 38–154; BP diastolic 25–97; PULSE 32–141; RESP 28–35
[2023-12-10] MEDS: SODIUM BICARBONATE 8.4% 1 MEQ/ML 50ML SYR IV NR ×2 (00:35→00:40)
[2023-12-10] MEDS: ATROPINE SULFATE 1MG/10ML SYR IV NR ×2 (00:41→01:10)
[2023-12-10] MEDS: SODIUM BICARBONATE 150 MEQ in DEXTROSE 5% WATER 850 ML IV SCH (01:09)
[2023-12-10] MEDS: CALCIUM CHLORIDE 1GM/10ML SYR IV NR (01:10)
[2023-12-10] MEDS: EPINEPHRINE 10 MG in SODIUM CHLORIDE 0.9% 240 ML IV PRN (01:19)
== END 2023-12-10 02:47 | DRG 4 ==
LOC: ER 09:45 → CVICU 18:26
PROVIDERS: ADMIT Internal Medicine; ATTEND Internal Medicine
PROC: 5A1955Z Respiratory Ventilation, Greater than 96 Consecutive Hours (ICD-10-PCS; 2023-11-20)
PROC: 0BH17EZ Insertion of Endotracheal Airway into Trachea, Via Natural or Artificial Opening (ICD-10-PCS; 2023-11-20)
PROC: 02HV33Z Insertion of Infusion Device into Superior Vena Cava, Percutaneous Approach (ICD-10-PCS; 2023-11-20)
PROC: 4A00X4Z Measurement of Central Nervous Electrical Activity, External Approach (ICD-10-PCS; 2023-11-23)
PROC: 02HV33Z Insertion of Infusion Device into Superior Vena Cava, Percutaneous Approach (ICD-10-PCS; 2023-11-23)
PROC: B548ZZA Ultrasonography of Superior Vena Cava, Guidance (ICD-10-PCS; 2023-11-23)
PROC: 30233R1 Transfusion of Nonautologous Platelets into Peripheral Vein, Percutaneous Approach (ICD-10-PCS; 2023-11-29)
PROC: 0B110F4 Bypass Trachea to Cutaneous with Tracheostomy Device, Open Approach (ICD-10-PCS; principal; 2023-11-30)
PROC: 0GBJ0ZZ Excision of Thyroid Gland Isthmus, Open Approach (ICD-10-PCS; 2023-11-30)
PROC: 06HY33Z Insertion of Infusion Device into Lower Vein, Percutaneous Approach (ICD-10-PCS; 2023-12-01)
PROC: B54BZZA Ultrasonography of Right Lower Extremity Veins, Guidance (ICD-10-PCS; 2023-12-01)
PROC: 5A1D70Z Performance of Urinary Filtration, Intermittent, Less than 6 Hours Per Day (ICD-10-PCS; 2023-12-01)
PROC: 5A1D70Z Performance of Urinary Filtration, Intermittent, Less than 6 Hours Per Day (ICD-10-PCS; 2023-12-03)
PROC: 4A00X4Z Measurement of Central Nervous Electrical Activity, External Approach (ICD-10-PCS; 2023-12-06)
PROC: 5A1D70Z Performance of Urinary Filtration, Intermittent, Less than 6 Hours Per Day (ICD-10-PCS; 2023-12-06)
PROC: 02HV33Z Insertion of Infusion Device into Superior Vena Cava, Percutaneous Approach (ICD-10-PCS; 2023-12-07)
PROC: B548ZZA Ultrasonography of Superior Vena Cava, Guidance (ICD-10-PCS; 2023-12-07)
PROC: 5A12012 Performance of Cardiac Output, Single, Manual (ICD-10-PCS; 2023-12-10)
DX: A41.9 Sepsis, unspecified organism (principal); K72.00 Acute and subacute hepatic failure without coma; R65.21 Severe sepsis with septic shock; I60.9 Nontraumatic subarachnoid hemorrhage, unspecified; G92.8 Other toxic encephalopathy; I12.0 Hypertensive chronic kidney disease with stage 5 chronic kidney disease or end stage renal disease; D69.6 Thrombocytopenia, unspecified; E72.20 Disorder of urea cycle metabolism, unspecified; B49 Unspecified mycosis; N17.9 Acute kidney failure, unspecified; N18.6 End stage renal disease; K27.4 Chronic or unspecified peptic ulcer, site unspecified, with hemorrhage; J96.01 Acute respiratory failure with hypoxia; Z20.822 Contact with and (suspected) exposure to COVID-19; Z66 Do not resuscitate; J18.9 Pneumonia, unspecified organism; I21.A1 Myocardial infarction type 2; K76.82 Hepatic encephalopathy; E87.20 Acidosis, unspecified; I48.91 Unspecified atrial fibrillation; D53.9 Nutritional anemia, unspecified; F10.10 Alcohol abuse, uncomplicated; M62.82 Rhabdomyolysis; K70.31 Alcoholic cirrhosis of liver with ascites; K76.0 Fatty (change of) liver, not elsewhere classified; Z99.2 Dependence on renal dialysis; Z78.1 Physical restraint status
CPT/HCPCS: 36415; 36556; 36573; 36600; 71045; 71250; 74018; 74176; 76705; 76770; 76937; 80048; 80053; 80307; 80329; 81003; 82140; 82248; 82375; 82550; 82607; 82728; 82746; 82805; 82962; 83036; 83540; 83550; 83605; 83735; 84100; 84132; 84145; 84478; 84484; 85014; 85018; 85025; 85044; 86705; 86709; 86850; 86900; 87070; 87106; 87340; 87426; 87804; 90935; 93005; 93970; 94002; 94003; 94640; 95816; 99291; A6261; C1725; C1752; C9113; J0610; J0692; J1265; J1815; J1953; J2060; J2185; J2248; J2250; J2354; J2370; J2405; J2543; J2704; J2765; J2920; J3010; J3370; J3430; J3475; J3480; J3490; J7030; J7040; J7050; J7060; J7070; J7512; P9034; P9047; Q9957